=== PATIENT | female | born 1975 | race Caucasian/White ===

== ENCOUNTER → 2016-06-25 | Day surgery (SDC) | payer OTHER ==
[2016-06-21 14:58] LABS: BASO # 0.1 10*3/uL (0.0-0.1); BASO % 0.5 % (0.0-1.0); EOS # 0.1 10*3/uL (0.0-0.4); EOS % 0.8 % (1.0-4.0); HEMATOCRIT 39.3 % (37.0-47.0); HEMOGLOBIN 12.8 g/dl (12.0-16.0); LYMPH # 2.7 10*3/uL (1.3-4.4); LYMPH % 28.5 % (27.0-41.0); MEAN CELL VOLUME 82.2 fl (81.0-99.0); MEAN CORPUSCULAR HGB 26.8 pg (27.0-31.0); MEAN CORPUSCULAR HGB CONC 32.6 g/dl (33.0-37.0); MEAN PLATELET VOLUME 12.4 fl (9.6-12.3); MONO # 0.6 10*3/uL (0.1-1.0); MONO % 5.9 % (3.0-9.0); NEUT % 64.1 % (47.0-73.0); PLATELET COUNT AUTOMATED 334 10*3/uL (130-400); RED BLOOD COUNT 4.78 10*6/uL (4.10-5.10); RED CELL DISTRI WIDTH 13.7 % (0-14.5); WHITE BLOOD COUNT 9.3 10*3/uL (4.8-10.8)
[~2016-06-25] VITALS: Ht 157.4 cm; Wt 70.3 kg
[2016-06-25] VITALS (11 sets, daily range): BP systolic 92–115; BP diastolic 53–72
[~2016-06-25] MED LIST: ALPRAZOLAM0.5 M3 PO; DULOXETINE HCL60 MG PO; IBUPROFEN600 MG PO; MONTELUKAST SOD10 MG PO; OMEPRAZOLE D/R20 MG PO; PERCOCET 325 MG1 TA2 PO; QVAR8.7 GM INH; VENTOLIN H0.09 MG/AC INH; ZOLPIDEM TART10 MG PO
--- NOTE | ~2016-06-25 | WRIGHTHP ---
[place], [place] PATIENT HISTORY AND PHYSICAL EXAM NAME: SAMIR CELAYA [facility] #: [id number] UNIT #: [id number] ROOM: DOCTOR: MARYBETH HODGES MD BIRTHDATE: [birth year] DOS: 06/25/2016 DATE OF SURGERY: 06/25/2016 PRIMARY CARE PHYSICIAN: Dr. Jarad Hodges. HISTORY OF PRESENT ILLNESS: This is a 41-year-old white female who is 3, para 1, AB 2, who was first seen on 01/08/2016, having just had a normal TSH, CBC, and hCG and normal pelvic ultrasound. It was interesting that the patient had an ultrasound on 06/06/2016 and then 2 ultrasounds within 2 weeks, one of which said normal architecture of the uterus and the other said that there was some disconfiguration issues with the body of the uterus, but were not any more specific than that. The patient herself noted that she had been using a number of weight loss medications with Dr. Jarad Hodges with some good success, but she always regains her weight and she was working on some protocols to prevent the rebound. She also talked at length about her dyspareunia and multiple other symptoms associated with the dyspareunia and she was fairly certain she had endometriosis, although there was no family history of such. We also discussed the fact that she had IBS amongst many other diagnoses which will be notated in the past medical history. The patient also was mentioning some trouble emptying her bladder. At that time, we discussed laparoscopy, we discussed the concept of interstitial cystitis, the workups for both, the therapy, etc. She did state understanding, but she wanted to proceed with Contrave to see if she could lose some weight first and then we would consider the rest of the workup. The patient next followed up on 06/18/2016, at this time complaining of significant persistent dysmenorrhea, intermittent pelvic pain between cycles with cycles that vary in duration, intensity, flow, clotting and frequency. She continued to have significant dyspareunia. She also continued to have some significant issues as well. The patient on that appointment, however, wanted to know whether she had endometriosis first and foremost and then thereafter we could work on regulating her cycles, treating the pelvic symptoms if endometriosis in fact was noted and then proceeding with her KCL challenge and additional efforts for what is certainly by history sounds like interstitial cystitis. The patient had also mentioned that she had a laparoscopic cholecystectomy and was familiar with the risks and benefits, indications, potential complications, and alternatives of diagnostic laparoscopy. We also decided that since we were going to be proceeding with the laparoscopy that we would perform a D and C and hysteroscopy due to her very erratic periods and cycles. She signed a consent to these procedures and is scheduled for 06/25/2016. PAST MEDICAL HISTORY: Reveals a history of depression, dysmenorrhea, dyspareunia, GERD, anxiety, history of HPV, history HSV, IBS, history of low-grade SKIP Pap, history of asthma, dyslipidemia, OCD, history of scabies and history of scoliosis. The patient's history of low-grade SKIP MANFRED 1 was noted on Pap and ECC and cervical biopsy in 06/2014. Her present last period was 06/04/2016. She says that she inconsistently uses condoms for control. She has had several surgeries including breast reduction, cholecystectomy, D and C, wisdom teeth extraction, tonsillectomy. She has had 3 pregnancies, one child, one loss at 18 weeks and another elective termination. [place], [place] PATIENT HISTORY AND PHYSICAL EXAM NAME: SAMIR CELAYA UNIT #: [id number] ROOM: DOCTOR: MARYBETH HODGES MD BIRTHDATE: [birth year] SOCIAL HISTORY: The patient does not smoke or drink. ALLERGIES: She has no known allergies. MEDICATIONS: She does take a number of medications including duloxetine 60 mg daily for depression, ibuprofen 600 mg up to t.i.d. for discomfort, omeprazole 10 mg b.i.d. for GERD, Xanax 0.5 mg 3 times a day for anxiety, Ambien 10 mg at bedtime p.r.n. for sleep, QVAR 40 mcg 1 puff b.i.d. for asthma, Singulair 10 mg daily for allergies, Ventolin aerosol 2 puffs every 4 hours p.r.n. for asthma and Contrave as directed for weight loss. FAMILY HISTORY: Reveals her father with heart disease. Her mother with hypertension. PHYSICAL EXAMINATION: GENERAL: Pleasant white female, 5 feet 3 inches, 154 pounds, BMI is 27.3. VITAL SIGNS: Blood pressure is 118/72 and she is in no apparent distress. HEENT: Stable. NECK: Stable. LUNGS: Stable. CARDIAC: Stable. BREAST: Stable. Good healing in evidence of the previous bilateral breast reduction noted. ABDOMEN: Stable. EXTREMITIES: Stable. NEUROLOGIC: Stable. GENITOURINARY: External genitalia, vagina and cervix normal. Uterus is anteverted and anteflexed, somewhat tender and moderately mobile. Bladder is also tender on palpation. Adnexa without significant mass or pain. RECTAL: Deferred. ASSESSMENT: The patient with persistent dyspareunia, dysmenorrhea, irregular cycles and a strong suspicion by the patient of endometriosis despite no family history and no other diagnosis ever having been made. She also has multiple genitourinary complaints and I suspect interstitial cystitis. She has irritable bowel syndrome and many other diagnoses that may play into this symptomatology. To that end, on 06/25/2016, the patient will undergo diagnostic laparoscopy, hysteroscopy and D and C. [place], [place] PATIENT HISTORY AND PHYSICAL EXAM NAME: SAMIR CELAYA [facility] #: [id number] UNIT #: [id number] ROOM: DOCTOR: MARYBETH HODGES MD BIRTHDATE: [birth year] MARYBETH HODGES MD CM:HISPHYS:PATIENT HISTORY AND PHYSICAL EXAMINATION [id number] MARYBETH HODGES MD 06/22/16 0741 interface
--- NOTE | ~2016-06-25 | O ---
[place], [place] OPERATIVE NOTE [facility] [id number] UNIT #: [id number] ROOM: DOCTOR: MARYBETH SINHA MD BIRTHDATE: [birth year] DOS: 06/25/2016 PREOPERATIVE DIAGNOSES: Dyspareunia, dysmenorrhea, irregular dysfunctional bleeding, rule out endometriosis and suspected interstitial cystitis. POSTOPERATIVE DIAGNOSES: Dyspareunia, dysmenorrhea, irregular dysfunctional bleeding, rule out endometriosis and suspected interstitial cystitis with no evidence of endometriosis and a normal intrauterine cavity. OPERATION: Diagnostic laparoscopy, hysteroscopy and D and C. SURGEON: Dr. Marybeth Horton. ANESTHESIA: General. ESTIMATED BLOOD LOSS: Minimal. REPLACEMENTS: IV fluids and Toradol. COMPLICATIONS: There were no complications. CONDITION: The patient's condition to recovery stable. OPERATIVE SUMMARY: The patient was taken to the operating room in supine position, general anesthesia, endotracheal intubation, lithotomy position, prepped and draped in routine manner. The cervix was grasped and a cervical manipulator placed as well as a Mae placed to straight drain. Infraumbilical and suprapubic incisions were made under direct visualization through the infraumbilical incision; a 5 mm trocar sleeve and laparoscope were placed. Insufflation with CO2 was undertaken followed by placement of the suprapubic trocar and the 5 mm trocar and sleeve. Probe was used and systematic examination of the pelvis revealed the uterus to be normal in size, configuration and mobility. The anterior cul-de-sac was normal. The fallopian tubes and ovaries were normal also supporting structures were normal bilaterally. There was a moderate amount of peritoneal fluid in the posterior cul-de-sac and this was removed, an exam of the posterior cul-de-sac revealed no endometriosis. The uterosacral ligaments were thickened, but otherwise completely normal. Examination of the bowel, the cecum, the appendix, the liver, gallbladder and upper abdomen. In general was completely within normal limits to gross visualization. Once this survey was completed, the suprapubic trocar sleeve and probe were removed, noting no excessive anterior abdominal bleeding. CO2 was allowed to escape, followed by removal of the infraumbilical trocar sleeve and laparoscope. Each incision was closed with subcuticular 3-0 Monocryl suture. Steri-Strips and dressings placed. We then removed the cervical manipulator sounded the uterus to between 6.5 and 7 cm dilated the cervix and placed the hysteroscope. Examination of the fundus, the cornual region, the body of the uterus, and lower uterine segment were normal. The endometrium was somewhat shaggy consistent with a secretory type lining of the uterus. A thorough D and C with both curette and stone forceps were undertaken followed by a repeat hysteroscopy revealing no other additional atypicalities. [place], [place] OPERATIVE NOTE NAME: SAMIR CELAYA UNIT #: [id number] ROOM: DOCTOR: ERNESTINE PENALOZA,MARYBETH BIRTHDATE: [birth year] Once this was completed, the instrumentation was removed from the cervix and vagina and noting good hemostasis, we then removed the Mae catheter with a total urine output of about 150 mL of clear urine. Once this was completed, we then cleaned the patient off, took her out of lithotomy position, awakened, extubated, and transferred to recovery in satisfactory condition with stable vital signs. Clear and adequate urine output, good hemostasis and stable sponge and instrument count. MARYBETH SINHA MD CM:OPRECORD:OPERATIVE NOTE [id number] MARYBETH SINHA MD 06/25/16 1214 interface
--- NOTE | ~2016-06-25 | WRIGHTHP ---
[place], [place] PATIENT HISTORY AND PHYSICAL EXAM NAME: SAMIR CELAYA [facility] #: [id number] UNIT #: [id number] ROOM: DOCTOR: MARYBETH HODGES MD BIRTHDATE: [birth year] DOS: 06/25/2016 DATE OF SURGERY: 06/25/2016 PRIMARY CARE PHYSICIAN: Dr. Jarad Hodges. HISTORY OF PRESENT ILLNESS: This is a 41-year-old white female who is 3, para 1, AB 2, who was first seen on 01/08/2016, having just had a normal TSH, CBC, and hCG and normal pelvic ultrasound. It was interesting that the patient had an ultrasound on 06/06/2016 and then 2 ultrasounds within 2 weeks, one of which said normal architecture of the uterus and the other said that there was some disconfiguration issues with the body of the uterus, but were not any more specific than that. The patient herself noted that she had been using a number of weight loss medications with Dr. Jarad Hodges with some good success, but she always regains her weight and she was working on some protocols to prevent the rebound. She also talked at length about her dyspareunia and multiple other symptoms associated with the dyspareunia and she was fairly certain she had endometriosis, although there was no family history of such. We also discussed the fact that she had IBS amongst many other diagnoses which will be notated in the past medical history. The patient also was mentioning some trouble emptying her bladder. At that time, we discussed laparoscopy, we discussed the concept of interstitial cystitis, the workups for both, the therapy, etc. She did state understanding, but she wanted to proceed with Contrave to see if she could lose some weight first and then we would consider the rest of the workup. The patient next followed up on 06/18/2016, at this time complaining of significant persistent dysmenorrhea, intermittent pelvic pain between cycles with cycles that vary in duration, intensity, flow, clotting and frequency. She continued to have significant dyspareunia. She also continued to have some significant issues as well. The patient on that appointment, however, wanted to know whether she had endometriosis first and foremost and then thereafter we could work on regulating her cycles, treating the pelvic symptoms if endometriosis in fact was noted and then proceeding with her KCL challenge and additional efforts for what is certainly by history sounds like interstitial cystitis. The patient had also mentioned that she had a laparoscopic cholecystectomy and was familiar with the risks and benefits, indications, potential complications, and alternatives of diagnostic laparoscopy. We also decided that since we were going to be proceeding with the laparoscopy that we would perform a D and C and hysteroscopy due to her very erratic periods and cycles. She signed a consent to these procedures and is scheduled for 06/25/2016. PAST MEDICAL HISTORY: Reveals a history of depression, dysmenorrhea, dyspareunia, GERD, anxiety, history of HPV, history HSV, IBS, history of low-grade SKIP Pap, history of asthma, dyslipidemia, OCD, history of scabies and history of scoliosis. The patient's history of low-grade SKIP MANFRED 1 was noted on Pap and ECC and cervical biopsy in 06/2014. Her present last period was 06/04/2016. She says that she inconsistently uses condoms for control. She has had several surgeries including breast reduction, cholecystectomy, D and C, wisdom teeth extraction, tonsillectomy. She has had 3 pregnancies, one child, one loss at 18 weeks and another elective termination. [place], [place] PATIENT HISTORY AND PHYSICAL EXAM NAME: SAMIR CELAYA UNIT #: [id number] ROOM: DOCTOR: MARYBETH HODGES MD BIRTHDATE: [birth year] SOCIAL HISTORY: The patient does not smoke or drink. ALLERGIES: She has no known allergies. MEDICATIONS: She does take a number of medications including duloxetine 60 mg daily for depression, ibuprofen 600 mg up to t.i.d. for discomfort, omeprazole 10 mg b.i.d. for GERD, Xanax 0.5 mg 3 times a day for anxiety, Ambien 10 mg at bedtime p.r.n. for sleep, QVAR 40 mcg 1 puff b.i.d. for asthma, Singulair 10 mg daily for allergies, Ventolin aerosol 2 puffs every 4 hours p.r.n. for asthma and Contrave as directed for weight loss. FAMILY HISTORY: Reveals her father with heart disease. Her mother with hypertension. PHYSICAL EXAMINATION: GENERAL: Pleasant white female, 5 feet 3 inches, 154 pounds, BMI is 27.3. VITAL SIGNS: Blood pressure is 118/72 and she is in no apparent distress. HEENT: Stable. NECK: Stable. LUNGS: Stable. CARDIAC: Stable. BREAST: Stable. Good healing in evidence of the previous bilateral breast reduction noted. ABDOMEN: Stable. EXTREMITIES: Stable. NEUROLOGIC: Stable. GENITOURINARY: External genitalia, vagina and cervix normal. Uterus is anteverted and anteflexed, somewhat tender and moderately mobile. Bladder is also tender on palpation. Adnexa without significant mass or pain. RECTAL: Deferred. ASSESSMENT: The patient with persistent dyspareunia, dysmenorrhea, irregular cycles and a strong suspicion by the patient of endometriosis despite no family history and no other diagnosis ever having been made. She also has multiple genitourinary complaints and I suspect interstitial cystitis. She has irritable bowel syndrome and many other diagnoses that may play into this symptomatology. To that end, on 06/25/2016, the patient will undergo diagnostic laparoscopy, hysteroscopy and D and C. [place], [place] PATIENT HISTORY AND PHYSICAL EXAM NAME: SAMIR CELAYA [facility] #: [id number] UNIT #: [id number] ROOM: DOCTOR: MARBYETH HODGES MD BIRTHDATE: [birth year] MARYBETH HODGES MD CM:HISPHYS:PATIENT HISTORY AND PHYSICAL EXAMINATION 1033 1227 MARYBETH HODGES MD 06/22/16 0742 interface
== END | disposition home or self-care (01) ==
LOC: SDC 06-21 12:30
PROVIDERS: Obstetrics & Gynecology
DX: N94.10 Unspecified dyspareunia (principal); N94.6 Dysmenorrhea, unspecified; J45.909 Unspecified asthma, uncomplicated; K21.9 Gastro-esophageal reflux disease without esophagitis; F41.9 Anxiety disorder, unspecified; F32.9 Major depressive disorder, single episode, unspecified; K58.9 Irritable bowel syndrome, unspecified; E78.5 Hyperlipidemia, unspecified; Z83.3 Family history of diabetes mellitus; Z82.3 Family history of stroke; Z82.49 Family history of ischemic heart disease and other diseases of the circulatory system; Z82.5 Family history of asthma and other chronic lower respiratory diseases; Z90.49 Acquired absence of other specified parts of digestive tract